=== PATIENT | female | born 1970 | race Hispanic/Latino ===

== ENCOUNTER 2019-06-14 19:26 | Inpatient (IN) ==
[~2019-06-14 19:26] MED LIST: Iopamidol-370 76% 500 ML 1 ML ONE
[2019-06-14 20:15] LABS: #Eosinphils 0.3 thou/uL (0.0-0.7); #Monocytes 0.7 thou/uL (0.11-0.59); #Neutrophils 6.8 thou/uL (1.40-6.50); %Basophils 0.4 % (0.0-1.0); %Eosinophils 2.5 % (0.0-10.0); %Monocytes 6.3 % (0.0-10.0); %Neutrophils 62.8 % (42.0-75.0); Hemoglobin 14.3 g/dL (12.0-16.0); Mean Corpuscular HGB CONC 33.8 g/dL (32.0-36.0); Mean Corpuscular Hemoglobin 30.6 pg (27.0-31.0); Mean Corpuscular Volume 90.6 fL (78.0-98.0); Mean Platelet Volume 7.8 fL (7.4-10.4); Platelet Count 271 thou/uL (130-400); RBC Distribution Width 11.6 % (11.5-14.5); Red Blood Cell (RBC) Count 4.68 mill/uL (4.20-5.40); White Blood Cell (WBC) Count 10.8 thou/uL (4.8-10.8)
[2019-06-14 20:21] LABS: BHCG - Serum Negative (NEGATIVE); Pregs Control Background? CLEAR/WHITE (CLR/WHITE); Pregs Control Bar Appear? YES (CONTROL BAR)
[2019-06-14 20:36] LABS: ALT (SGPT) 33 U/L (8-55); AST (SGOT) 26 U/L (5-34); Alkaline Phosphatase 146 U/L (40-110); Anion Gap 12 mmol/L (10-20); BUN (Urea Nitrogen) 16 mg/dL (7.0-18.7); Bilirubin, Total 0.6 mg/dL (0.2-1.2); Calc. Creatinine Clearance 0 mL/min (70-130); Calcium 9.1 mg/dL (7.8-10.44); Carbon Dioxide 23 mmol/L (22-29); Chloride 107 mmol/L (98-107); Estimated GFR-MDRD 75; Globulin 3.6 g/dL (2.4-3.5); Glucose 88 mg/dL (70-105); Lipase 32 U/L (8-78); Potassium 3.3 mmol/L (3.5-5.1); Protein, Total 7.6 g/dL (6.0-8.3); Sodium 139 mmol/L (136-145)
[2019-06-14] MEDS ORDERED: Ondansetron PF 4 MG/2 ML Vial ONE (20:48)
[2019-06-14] MEDS ORDERED: Morphine 4 MG/ML VIAL ONE (20:48)
--- NOTE | 2019-06-14 21:17 | CT ---
CT ABDOMEN WITH CONTRAST CT PELVIS WITH CONTRAST: DATE: 06/14/2019 HISTORY: 48-year-old female with lower abdominal pain with nausea and diarrhea, fever, and vomiting. TECHNIQUE: IV injection of iodinated contrast media: administered. Oral contrast media:Not administered FINDINGS: Lumbar spine: Bilateral L5 pars interarticularis defects. Very mild grade 1 anterolisthesis of L5 on S1. Appendix: Distal portion thickened to approximately 10 mm with surrounding mild periappendiceal fat s tranding representing edema. Liver: Diffusely low attenuation represents fatty liver. No focal lesion. Cholecystectomy clips in ga llbladder fossa. Kidneys: Normal. Spleen: Normal. Pancreas: Normal. Adrenals: Normal. Abdominal aorta: No aneurysm. Urinary bladder: Decompressed. Large intestine: No diverticulitis. Small intestine: Not dilated. Lung bases: Clear. Ascites and pneumoperitoneum: None Abscess: None IMPRESSION: 1. Probably perforated distal tip appendicitis. 2. Mild grade 1 spondylolisthesis at L5-S1 due to bilateral L5 spondylolysis. 3. Hepatic steatosis.
[2019-06-14] MEDS ORDERED: Piperacillin/Tazobactam 4.5 GM VIAL ONE (21:46)
[2019-06-14] MEDS ORDERED: Morphine 4 MG/ML VIAL SLOW IVP PRN (23:50)
[2019-06-14] MEDS ORDERED: Ondansetron PF 4 MG/2 ML Vial IVP PRN (23:50)
[2019-06-14] MEDS ORDERED: Ondansetron ODT 4 MG TAB SL PRN (23:50)
[2019-06-15] MEDS: Lactated Ringer's 1,000 ML IV SCH ×2 (00:20→07:42)
[2019-06-15] MEDS ORDERED: Promethazine HCl 25 MG/ML VIAL IM PRN ×3 (00:49→12:47)
[2019-06-15] MEDS ORDERED: Dextrose 50% Abboject 50 ML SYRINGE SLOW IVP PRN ×2 (00:49→12:47)
[2019-06-15] MEDS ORDERED: Dextrose 5% in Water 1,000 ML IV PRN ×2 (00:49→12:47)
[2019-06-15] MEDS ORDERED: Morphine 4 MG/ML VIAL SLOW IVP PRN ×2 (00:49→12:47)
[2019-06-15] MEDS ORDERED: Morphine 2 MG/ML SYRINGE SLOW IVP PRN ×2 (00:49→12:47)
[2019-06-15] MEDS ORDERED: Ondansetron PF 4 MG/2 ML Vial IVP PRN ×2 (00:49→12:47)
[2019-06-15] MEDS ORDERED: hydrALAZINE 20 MG/ML VIAL SLOW IVP PRN ×2 (00:49→12:47)
[2019-06-15] MEDS ORDERED: Ketorolac Tromethamine 30 MG/ML VIAL IVP PRN (00:49)
[2019-06-15 00:52] VITALS: BMI 29.5
[2019-06-15] MEDS: D5 1/2 NS w/20 mEq KCL 1,000 ML IV SCH ×2 (02:29→09:53)
[2019-06-15] MEDS: Piperacillin/Tazobactam 3.375 GM in Sodium Chloride 0.9% 100 ML IVPB SCH ×2 (03:42→09:37)
--- NOTE | 2019-06-15 08:54 | HP ---
CHIEF COMPLAINT: Abdominal pain. HISTORY OF PRESENT ILLNESS: This is a 48-year-old female, who presents with a crampy lower abdominal pain since [place]. The pain is described as 8/10, sharp, does not radiate, associated with nausea, no vomiting, associated with anorexia. Nothing makes it better or worse. Seen in the emergency room overnight and CT scan shows appendicitis. She denies history of previous abdominal pain like this. No history of inflammatory bowel disease or Crohn's. PAST MEDICAL HISTORY: Hypertension. PAST SURGICAL HISTORY: She denies. MEDICATIONS: Taken daily, atenolol. SOCIAL HISTORY: No smoking, alcohol, or other drugs. REVIEW OF SYSTEMS: Ten-system review of systems is otherwise negative unless described above. PHYSICAL EXAMINATION: HEENT: Sclerae are anicteric. Oropharynx clear. NECK: No lymphadenopathy. CHEST: Clear. HEART: Regular rate. ABDOMEN: Soft. Tender right lower quadrant. Left lower quadrant with localized guarding. No rebound. No abdominal or inguinal hernia. EXTREMITIES: No ischemia or edema to extremities. DIAGNOSTIC DATA: White blood cell count is 10, hemoglobin 14. Creatinine is 0.81. CT scan shows acute appendicitis. ASSESSMENT: Acute appendicitis. PLAN: Laparoscopic appendectomy. Risks, benefits, and alternatives discussed. She gives consent. We will do this today. Job ID: [id number]
[2019-06-15] MEDS ORDERED: Famotidine 20 MG TAB PO SCH ×2 (09:00→21:00)
[2019-06-15] MEDS ORDERED: FLU VACC QS2019-20(6MOS UP)/PF 60 MCG/0.5 ML SYRINGE IM ONE (09:00)
[2019-06-15] MEDS ORDERED: Famotidine/PF 20 mg/2ml Vial SLOW IVP SCH ×2 (09:00→21:00)
[2019-06-15] MEDS ORDERED: Fentanyl 100 MCG/2 ML VIAL ONE (10:15)
[2019-06-15] MEDS ORDERED: Lidocaine 1% w/Epinephrine 1:100K 20 ML VIAL ONE (10:19)
[2019-06-15] MEDS ORDERED: Bupivacaine PF 0.5% 30 ML VIAL ONE (10:19)
[2019-06-15] MEDS ORDERED: Ketorolac Tromethamine 30 MG/ML VIAL ONE (10:56)
[2019-06-15] MEDS ORDERED: PROPOFOL 200 MG/20 ML VIAL ONE (10:56)
[2019-06-15] MEDS ORDERED: Rocuronium Bromide 10 MG/ML (10ML VIAL) ONE (10:56)
[2019-06-15] MEDS ORDERED: Glycopyrrolate 0.2 MG/ML 5 ML SYRINGE ONE (10:56)
[2019-06-15] MEDS ORDERED: Lidocaine 1% PF 5 ML VIAL ONE (10:56)
[2019-06-15] MEDS ORDERED: Ondansetron PF 4 MG/2 ML Vial ONE (10:56)
[2019-06-15] MEDS ORDERED: Succinylcholine Chloride 20 MG/ML 10 ml SYRINGE FS ONE (10:56)
[2019-06-15] MEDS ORDERED: SUGAMMADEX SODIUM 200 MG/2 ML VIAL ONE (11:35)
[2019-06-15] MEDS ORDERED: Promethazine HCl 25 MG/ML VIAL SLOW IVP PRN (11:44)
[2019-06-15] MEDS ORDERED: Morphine Sulfate 2 MG/ML SYRINGE SLOW IVP PRN (11:44)
[2019-06-15] MEDS ORDERED: HYDROmorphone 2 MG/ML VIAL SLOW IVP PRN (11:44)
[2019-06-15] MEDS ORDERED: Ondansetron HCl/PF 4 MG/2 ML Vial IVP PRN (11:44)
[2019-06-15] MEDS ORDERED: PACU-Morphine 4MG/ML VIAL SLOW IVP PRN (11:44)
[2019-06-15] MEDS ORDERED: D5 1/2 NS w/20 mEq KCL 1,000 ML IV SCH (12:47)
[2019-06-15] MEDS ORDERED: HYDROcodone/Acetaminophen 7.5/325 mg Tablet PO PRN (12:47)
[2019-06-15 12:54] VITALS: BP 137/84; TEMP 97.7
[2019-06-15] MEDS ORDERED: Piperacillin/Tazobactam 3.375 GM in Sodium Chloride 0.9% 100 ML IVPB SCH (16:00)
--- NOTE | 2019-06-15 17:47 | OP ---
DATE OF PROCEDURE: 06/15/2019 PREOPERATIVE DIAGNOSIS: Acute appendicitis. POSTOPERATIVE DIAGNOSIS: Acute appendicitis. PROCEDURE: Laparoscopic appendectomy. ANESTHESIA: General. ESTIMATED BLOOD LOSS: Minimal. COMPLICATIONS: None. SPECIMEN: Appendix. FINDINGS: Appendicitis DESCRIPTION OF PROCEDURE: The patient was taken to the operating room and laid supine on the operating room table. After general anesthetic was obtained, a Martínez was placed and the abdomen was prepped and draped in a sterile fashion. Curved incision was made below the umbilicus. Cautery was used to dissect down to and score the fascia. Abdominal cavity was entered bluntly using a Kaur clamp. Holding stitch of PDS was placed on each side of the fascia. A 12 mm trocar was placed. High-flow pneumoperitoneum was obtained. Suprapubic 5 mm port and left lower quadrant 5 mm port were placed under direct visualization. Cecum was rolled over to reveal acute appendicitis. Small window was made at the base appendix and the mesoappendix. Laparoscopic stapler was fired across the base appendix. Reload was fired across the mesoappendix. The appendix was placed in an EndoCatch bag and brought out through the Suri. There was no bleeding or evidence of perforation. There were locally inflammatory changes at the tip. The right lower quadrant and pelvis were irrigated using sterile solution. No ongoing bleeding. All port sites were infiltrated using local anesthetic. All ports were removed under direct camera visualization. Pneumoperitoneum was let down. The PDS was used to close the fascia below the umbilicus. All incisions sites were irrigated and closed using 4-0 Monocryl and Dermabond. The patient was sent to Recovery in stable condition. All instrument counts, needle counts, and lap counts were correct. Job ID: [id number]
== END 2019-06-15 18:10 | disposition home or self-care (01) | DRG 343 ==
LOC: ERS 19:26 → OBSVTOIN 21:27 → SURG A 21:27
PROVIDERS: ADMIT Surgery; ATTEND Surgery
PROC: 0DTJ4ZZ Resection of Appendix, Percutaneous Endoscopic Approach (ICD-10-PCS; principal; 2019-06-15)
DX: K35.80 Unspecified acute appendicitis (principal); I10 Essential (primary) hypertension
CPT/HCPCS: 36415; 74177; 80053; 83690; 84703; 85025; 88304; 96361; 96365; 96375; J1885; J2001; J2270; J2405; J2543; J2704; J3010; J3490; Q9967; S0020; S0028

== ENCOUNTER 2021-04-07 18:01 | Emergency (ER) | payer SELFPAY | END 2021-04-07 20:25 | disposition home or self-care (01) | LOC: ERS 18:01 | DX: I10 Essential (primary) hypertension (principal); R51.9 Headache, unspecified; Z79.899 Other long term (current) drug therapy | CPT/HCPCS: 70450 ==